=== PATIENT | male | born 1935 | race Caucasian/White ===

== ENCOUNTER 2016-11-24 03:09 | Emergency (ER) | payer OTHER, MEDICARE ==
[~2016-11-24] VITALS: Ht 172.7 cm; Wt 77.3 kg
[~2016-11-24 03:09] MED LIST: AMLODIPINE BESY10 MG PO; Aldactone PO; Bactrim,Septra DS 80 PO; CRESTOR20 MG PO; FLOMAX0.4 MG PO; Flomax PO; INDOCIN50 MG PO; LOW DOSE ASPIRI81 M2 PO; Lopressor PO; METOPROLOL SUCC25 MG PO; Norvasc PO; SPIRONOLACTONE25 MG PO; [UNRECOGNIZED DRUG - OTHER] PO
[2016-11-24 04:26] LABS: ADD MIUA? YES; BILIRUBIN NEGATIVE; BLOOD MODERATE; COLOR YELLOW ((YELLOW)); GLUCOSE (STRIP) NEGATIVE; KETONES NEGATIVE; LEUKOCYTES NEGATIVE; NITRITE NEGATIVE; PROTEIN (STRIP) 30; SPECIFIC GRAVITY 1.013 (1.000-1.030); UROBILINOGEN 0.2 MG/DL (0.2-1.0)
[2016-11-24 04:29] LABS: BACTERIA NONE SEEN /HPF; EPITHELIAL CELLS NONE SEEN /HPF; MUCUS TRACE /LPF; RED BLOOD CELLS TNTC /HPF (0-5); UCUL ADDED? YES; WHITE BLOOD CELLS 0-5 /HPF (0-5)
[2016-11-24 04:51] LABS: CHLORIDE 106 mEq/L (99-109); POTASSIUM 4.3 mEq/L (3.7-5.4); SODIUM 138 mEq/L (136-147)
[2016-11-24 04:53] LABS: GLUCOSE 120 mg/dL (70-99)
[2016-11-24 04:55] LABS: ANION GAP 9 MEQ/L (2-14)
[2016-11-24 04:57] LABS: GFR ESTIMATE (CALCULATED) > 59 mL/min/
[2016-11-24 04:58] LABS: UREA NITROGEN (BUN) 20 mg/dL (9-23)
[2016-11-24 05:07] LABS: HEMATOCRIT 37.7 % (38.0-50.0); MCH 30.8 PG (29.0-34.0); MCV 90.8 FL (86-99); MEAN PLAT.VOLUME 10.4 uM^3 (9.0-12.4); PLATELET COUNT 168 K/uL (156-360); RBC DIS.WIDTH-CV 12.8 % (11.8-14.6); RBC DIS.WIDTH-SD 42.1 % (39-53); RED BLOOD COUNT 4.15 M/uL (4.00-5.50); WHITE BLOOD COUNT 7.2 K/uL (4.1-10.2)
[2016-11-24 06:00] VITALS: BP 130/73
== END 2016-11-24 06:00 | disposition home or self-care (01) ==
LOC: EME 03:09
PROVIDERS: Emergency Medicine
PROC: 0T9B70Z Drainage of Bladder with Drainage Device, Via Natural or Artificial Opening (ICD-10-PCS; principal; 2016-11-24)
DX: R33.9 Retention of urine, unspecified (principal); Z98.890 Other specified postprocedural states; I10 Essential (primary) hypertension; Z85.46 Personal history of malignant neoplasm of prostate; Z79.82 Long term (current) use of aspirin
CPT/HCPCS: 80048; 81003; 85027; 87086; 99281; 99284

== ENCOUNTER → 2016-11-30 | Outpatient (CLI) | payer MEDICARE | END | disposition home or self-care (01) | LOC: CDC 14:24 | DX: I49.1 Atrial premature depolarization (principal); I45.10 Unspecified right bundle-branch block; I44.4 Left anterior fascicular block | CPT/HCPCS: 93000 ==

== ENCOUNTER 2016-12-18 23:19 | Emergency (ER) | payer OTHER, MEDICARE ==
[~2016-12-18] VITALS: Ht 172.7 cm; Wt 75.6 kg
[2016-12-19 00:16] LABS: HEMATOCRIT 37.4 % (38.0-50.0); MCH 30.4 PG (29.0-34.0); MCHC 33.4 G/DL (30.0-36.0); MEAN PLAT.VOLUME 9.9 uM^3 (9.0-12.4); PLATELET COUNT 202 K/uL (156-360); RBC DIS.WIDTH-CV 12.7 % (11.8-14.6); RBC DIS.WIDTH-SD 42.1 % (39-53); RED BLOOD COUNT 4.11 M/uL (4.00-5.50); WHITE BLOOD COUNT 5.2 K/uL (4.1-10.2)
[2016-12-19 00:26] LABS: ADD MIUA? YES; BILIRUBIN NEGATIVE; BLOOD SMALL; GLUCOSE (STRIP) NEGATIVE; KETONES NEGATIVE; LEUKOCYTES MODERATE; NITRITE NEGATIVE; PROTEIN (STRIP) NEGATIVE; SPECIFIC GRAVITY 1.009 (1.000-1.030); UROBILINOGEN 0.2 MG/DL (0.2-1.0)
[2016-12-19 00:28] LABS: COLOR GREEN ((YELLOW))
[2016-12-19 00:30] LABS: CHLORIDE 108 mEq/L (99-109); POTASSIUM 4.2 mEq/L (3.7-5.4); SODIUM 140 mEq/L (136-147)
[2016-12-19 00:31] LABS: GLUCOSE 111 mg/dL (70-99)
[2016-12-19 00:33] LABS: ANION GAP 8 MEQ/L (2-14)
[2016-12-19 00:35] LABS: GFR ESTIMATE (CALCULATED) > 59 mL/min/
[2016-12-19 00:36] LABS: UREA NITROGEN (BUN) 17 mg/dL (9-23)
[2016-12-19 00:42] LABS: BACTERIA 1+ /HPF; EPITHELIAL CELLS NONE SEEN /HPF; MUCUS NONE SEEN /LPF; UCUL ADDED? YES; WHITE BLOOD CELLS 20-30 /HPF (0-5)
[2016-12-19] MEDS ORDERED: BACTRIM,SEPT1 TABLET PO (00:56)
[2016-12-19 02:03] VITALS: BP 166/83
== END 2016-12-19 02:04 | disposition home or self-care (01) ==
LOC: EME 23:19
PROVIDERS: Emergency Medicine
PROC: 0T9B70Z Drainage of Bladder with Drainage Device, Via Natural or Artificial Opening (ICD-10-PCS; principal; 2016-12-18)
DX: R33.9 Retention of urine, unspecified (principal); N39.0 Urinary tract infection, site not specified; C61 Malignant neoplasm of prostate; C79.11 Secondary malignant neoplasm of bladder; I10 Essential (primary) hypertension; Z79.82 Long term (current) use of aspirin
CPT/HCPCS: 80048; 81003; 85027; 87086; 99281; 99284

== ENCOUNTER → 2017-02-01 | Outpatient (CLI) | payer OTHER, MEDICARE ==
[~2017-02-01] MED LIST changes: +BACTRIM,SEPT1 TABLET PO
== END | disposition home or self-care (01) ==
LOC: NUC 09:29
DX: M47.892 Other spondylosis, cervical region (principal); M47.897 Other spondylosis, lumbosacral region; M19.012 Primary osteoarthritis, left shoulder; M19.011 Primary osteoarthritis, right shoulder; M19.021 Primary osteoarthritis, right elbow; M19.032 Primary osteoarthritis, left wrist; M19.031 Primary osteoarthritis, right wrist; M19.072 Primary osteoarthritis, left ankle and foot
CPT/HCPCS: 78306; A9503

== ENCOUNTER 2017-07-20 02:43 | Observation (INO) | payer OTHER, MEDICARE ==
[~2017-07-20] VITALS: Ht 172.7 cm; Wt 74.5 kg
[2017-07-20 03:39] LABS: BASOPHIL (%) 0.1 % (0-1); EOSINOPHIL (%) 2.5 % (0-5); EOSINOPHIL COUNT 0.3 K/uL (0-0.3); HEMATOCRIT 27.5 % (38.0-50.0); IMMATURE GRANULOCYTE (%) 2.5 % (0.0-0.7); LYMPHOCYTE (%) 4.9 % (15-42); LYMPHOCYTE COUNT 0.6 K/uL (1.0-2.8); MCH 31.3 PG (29.0-34.0); MCHC 33.5 G/DL (30.0-36.0); MCV 93.5 FL (86-99); MONOCYTE (%) 12.4 % (3-12); MONOCYTE COUNT 1.4 K/uL (0-0.8); NEUTROPHIL (%) 77.6 % (45-76); NEUTROPHIL COUNT 8.8 K/uL (1.8-6.4); PLATELET COUNT 91 K/uL (156-360); RBC DIS.WIDTH-CV 15.8 % (11.8-14.6); RBC DIS.WIDTH-SD 53.1 % (39-53); RED BLOOD COUNT 2.94 M/uL (4.00-5.50); WHITE BLOOD COUNT 11.4 K/uL (4.1-10.2)
[2017-07-20 04:00] LABS: CHLORIDE 108 mEq/L (99-109); POTASSIUM 3.8 mEq/L (3.7-5.4); SODIUM 142 mEq/L (136-147)
[2017-07-20 04:01] LABS: MAGNESIUM 1.8 mg/dL (1.3-2.7)
[2017-07-20 04:02] LABS: GLUCOSE 109 mg/dL (70-99)
[2017-07-20 04:06] LABS: GFR ESTIMATE (CALCULATED) > 59 mL/min/ (58.99-99999)
[2017-07-20 04:07] LABS: UREA NITROGEN (BUN) 13 mg/dL (9-23)
[2017-07-20 04:09] LABS: HEMOGLOBIN 9.2 G/DL (12.5-16.6); TROP-I INTERPRETATION NEGATIVE; TROPONIN-I 0.02 ng/mL (0.0-0.30)
[2017-07-20 06:55] LABS: TROP-I INTERPRETATION NEGATIVE; TROPONIN-I 0.03 ng/mL (0.0-0.30)
[2017-07-20 08:43] VITALS: BP 132/60
[2017-07-20 11:10] VITALS: BP 107/59
[2017-07-20 13:01] LABS: TROP-I INTERPRETATION NEGATIVE; TROPONIN-I 0.02 ng/mL (0.0-0.30)
[2017-07-20 15:51] VITALS: BP 110/60
[2017-07-20 19:00] VITALS: BP 100/58
[2017-07-20 20:11] LABS: APPEARANCE SL.HAZY ((CLEAR)); BILIRUBIN NEGATIVE; BLOOD LARGE; COLOR YELLOW ((YELLOW)); GLUCOSE (STRIP) NEGATIVE; KETONES NEGATIVE; LEUKOCYTES NEGATIVE; NITRITE NEGATIVE; PROTEIN (STRIP) 100; SPECIFIC GRAVITY 1.023 (1.000-1.030); UROBILINOGEN 0.2 MG/DL (0.2-1.0)
[2017-07-20 20:22] LABS: BACTERIA NONE SEEN /HPF; EPITHELIAL CELLS NONE SEEN /HPF; MUCUS TRACE /LPF; RED BLOOD CELLS TNTC /HPF (0-5); UCUL ADDED? YES
[2017-07-20 23:58] VITALS: BP 129/79
[2017-07-21 04:09] VITALS: BP 110/70
[2017-07-21 06:30] LABS: BASOPHIL (%) 0.3 % (0-1); EOSINOPHIL (%) 1.9 % (0-5); EOSINOPHIL COUNT 0.2 K/uL (0-0.3); HEMATOCRIT 26.2 % (38.0-50.0); HEMOGLOBIN 8.4 G/DL (12.5-16.6); IMMATURE GRANULOCYTE (%) 1.9 % (0.0-0.7); LYMPHOCYTE (%) 5.4 % (15-42); LYMPHOCYTE COUNT 0.6 K/uL (1.0-2.8); MCH 29.9 PG (29.0-34.0); MCHC 32.1 G/DL (30.0-36.0); MCV 93.2 FL (86-99); MONOCYTE (%) 11.4 % (3-12); MONOCYTE COUNT 1.3 K/uL (0-0.8); NEUTROPHIL (%) 79.1 % (45-76); NEUTROPHIL COUNT 9.3 K/uL (1.8-6.4); RBC DIS.WIDTH-CV 15.9 % (11.8-14.6); RBC DIS.WIDTH-SD 53.8 % (39-53); RED BLOOD COUNT 2.81 M/uL (4.00-5.50); WHITE BLOOD COUNT 11.8 K/uL (4.1-10.2)
[2017-07-21 06:32] LABS: PLATELET COUNT 148 K/uL (156-360)
[2017-07-21 06:59] LABS: CHLORIDE 105 MEQ/L (99-109); GFR ESTIMATE (CALCULATED) > 59 mL/min/ (58.99-99999); GLUCOSE 101 mg/dL (70-99); MAGNESIUM 1.8 mg/dl (1.3-2.7); POTASSIUM 3.6 MEQ/L (3.7-5.4); SODIUM 140 MEQ/L (136-147); UREA NITROGEN (BUN) 13 mg/dL (9-23)
[2017-07-21 07:40] VITALS: BP 123/63
[2017-07-21 11:25] VITALS: BP 138/67
[2017-07-21 15:22] VITALS: BP 127/62
[2017-07-21 20:03] VITALS: BP 113/61
[2017-07-21 22:50] VITALS: BP 105/58
[2017-07-22] MEDS ORDERED: BACTRIM,SEPT1 TABLET PO (08:00)
[2017-07-22] MEDS ORDERED: POLYETHYLENE GL17 GM PO (08:01)
[2017-07-22] MEDS ORDERED: METAMUCIL PACK3.4 GM PO (08:01)
[2017-07-22] MEDS ORDERED: ENDOCET 5-3251 EACH PO (08:01)
[2017-07-22 08:06] VITALS: BP 100/63
[2017-07-22 11:13] VITALS: BP 101/58
== END 2017-07-22 13:40 | disposition home or self-care (01) ==
LOC: EME 02:43 → ENRESERV 05:36 → EDOF 05:36 → ENRESERV 06:32 → 5WEST 07:35
PROVIDERS: Internal Medicine; Internal Medicine Medical Oncology; Physician Assistant
DX: I82.611 Acute embolism and thrombosis of superficial veins of right upper extremity (principal); C67.9 Malignant neoplasm of bladder, unspecified; R07.9 Chest pain, unspecified; N30.40 Irradiation cystitis without hematuria; N30.20 Other chronic cystitis without hematuria; Z92.21 Personal history of antineoplastic chemotherapy; G62.9 Polyneuropathy, unspecified; I10 Essential (primary) hypertension; E78.5 Hyperlipidemia, unspecified; D64.9 Anemia, unspecified; D69.6 Thrombocytopenia, unspecified; I45.10 Unspecified right bundle-branch block; J84.10 Pulmonary fibrosis, unspecified; N31.2 Flaccid neuropathic bladder, not elsewhere classified; Z88.0 Allergy status to penicillin; Z88.1 Allergy status to other antibiotic agents; Z88.8 Allergy status to other drugs, medicaments and biological substances
CPT/HCPCS: 71045; 71275; 73201; 80048; 81003; 83605; 83735; 84484; 85025; 87040; 87086; 93005; 93971; 99281; 99285; G0378; J1650; J3010; J7030; J7040

== ENCOUNTER 2017-09-21 01:48 | Inpatient (IN) | payer OTHER, MEDICARE ==
[2017-09-21] VITALS (9 sets, daily range): BP systolic 84–111; BP diastolic 46–61
[~2017-09-21] VITALS: Ht 170.2 cm; Wt 74.5 kg
[~2017-09-21 01:48] MED LIST changes: +ENDOCET 5-3251 EACH PO; +METAMUCIL PACK3.4 GM PO; +POLYETHYLENE GL17 GM PO
[2017-09-21 02:53] LABS: BASOPHIL (%) 0.3 % (0-1); EOSINOPHIL (%) 0.3 % (0-5); HEMATOCRIT 29.4 % (38.0-50.0); HEMOGLOBIN 9.7 G/DL (12.5-16.6); IMMATURE GRANULOCYTE (%) 0.3 % (0.0-0.7); LYMPHOCYTE (%) 2.9 % (15-42); LYMPHOCYTE COUNT 0.3 K/uL (1.0-2.8); MCV 87.8 FL (86-99); MONOCYTE (%) 6.8 % (3-12); MONOCYTE COUNT 0.7 K/uL (0-0.8); NEUTROPHIL (%) 89.4 % (45-76); NEUTROPHIL COUNT 8.7 K/uL (1.8-6.4); PLATELET COUNT 255 K/uL (156-360); RBC DIS.WIDTH-CV 14.6 % (11.8-14.6); RBC DIS.WIDTH-SD 46.5 % (39-53); RED BLOOD COUNT 3.35 M/uL (4.00-5.50); WHITE BLOOD COUNT 9.8 K/uL (4.1-10.2)
[2017-09-21 03:04] LABS: ALBUMIN 3.5 g/dL (3.2-4.8); CHLORIDE 101 mEq/L (99-109); SODIUM 138 mEq/L (136-147)
[2017-09-21 03:06] LABS: GLUCOSE 151 mg/dL (70-99); TOTAL PROTEIN 7.6 g/dL (6.4-8.3)
[2017-09-21 03:08] LABS: TOTAL BILIRUBIN 0.5 mg/dL (0.0-1.0)
[2017-09-21 03:10] LABS: ALKALINE PHOSPHATASE 75 IU/L (3-129); CREATININE 1.2 mg/dL (0.6-1.3); GFR ESTIMATE (CALCULATED) > 59 mL/min/ (58.99-99999)
[2017-09-21 03:11] LABS: UREA NITROGEN (BUN) 16 mg/dL (9-23)
[2017-09-21 03:12] LABS: AST (GOT) 17 IU/L (2-34)
[2017-09-21 03:13] LABS: ALT (GPT) 15 IU/L (3-49); LIPASE 2 U/L (1.0-51.0)
[2017-09-21 03:41] LABS: APPEARANCE CLOUDY ((CLEAR)); BILIRUBIN NEGATIVE; BLOOD MODERATE; COLOR YELLOW ((YELLOW)); GLUCOSE (STRIP) NEGATIVE; KETONES NEGATIVE; LEUKOCYTES LARGE; NITRITE POSITIVE; PROTEIN (STRIP) 100; SPECIFIC GRAVITY 1.008 (1.000-1.030); UROBILINOGEN 0.2 MG/DL (0.2-1.0)
[2017-09-21 03:45] LABS: BACTERIA NONE SEEN /HPF; EPITHELIAL CELLS RARE /HPF; MUCUS TRACE /LPF; UCUL ADDED? YES; WHITE BLOOD CELLS TNTC /HPF (0-5)
[2017-09-21 06:55] LABS: CARBON DIOXIDE (BICARBONATE) 25.4 MEQ/L (20-31)
[2017-09-21] MEDS ORDERED: COLACE100 MG PO (13:00)
[2017-09-21] MEDS ORDERED: NORCO 5/3251 TABLET PO (13:00)
[2017-09-21] MEDS ORDERED: LASIX20 MG PO (13:01)
[2017-09-21 22:32] LABS: C DIFF TOXIN NEGATIVE (NEGATIVE)
[2017-09-22 05:33] VITALS: BP 111/55
[2017-09-22 06:10] LABS: CHLORIDE 106 MEQ/L (99-109); CREATININE 1.2 MG/DL (0.6-1.3); GFR ESTIMATE (CALCULATED) > 59 mL/min/ (58.99-99999); POTASSIUM 4.3 MEQ/L (3.7-5.4); SODIUM 140 MEQ/L (136-147); UREA NITROGEN (BUN) 19 mg/dL (9-23)
[2017-09-22 06:15] LABS: HEMATOCRIT 27.5 % (38.0-50.0); HEMOGLOBIN 8.6 G/DL (12.5-16.6); MCH 28.8 PG (29.0-34.0); MCHC 31.3 G/DL (30.0-36.0); RBC DIS.WIDTH-CV 14.7 % (11.8-14.6); RBC DIS.WIDTH-SD 49.5 % (39-53); RED BLOOD COUNT 2.99 M/uL (4.00-5.50); WHITE BLOOD COUNT 9.6 K/uL (4.1-10.2)
[2017-09-22 06:18] LABS: GLUCOSE 105 mg/dL (70-99)
[2017-09-22 07:04] LABS: PLAT.SUFFICIENCY ADEQUATE; PLATELET COUNT 174 K/uL (156-360)
[2017-09-22 07:36] VITALS: BP 107/58
[2017-09-22 12:26] VITALS: BP 108/59
[2017-09-22 15:27] VITALS: BP 125/61
[2017-09-22 20:13] VITALS: BP 121/58
[2017-09-23 01:11] VITALS: BP 119/59
[2017-09-23 04:42] VITALS: BP 120/69
[2017-09-23 07:57] VITALS: BP 114/64
[2017-09-23 12:55] VITALS: BP 114/71
[2017-09-23 15:59] VITALS: BP 112/56
[2017-09-23 20:03] VITALS: BP 111/67
[2017-09-24 00:33] VITALS: BP 135/64
[2017-09-24 05:12] LABS: BASOPHIL (%) 0.3 % (0-1); EOSINOPHIL (%) 3.3 % (0-5); EOSINOPHIL COUNT 0.1 K/uL (0-0.3); HEMATOCRIT 24.5 % (38.0-50.0); IMMATURE GRANULOCYTE (%) 0.6 % (0.0-0.7); LYMPHOCYTE COUNT 0.3 K/uL (1.0-2.8); MCH 28.9 PG (29.0-34.0); MCHC 32.7 G/DL (30.0-36.0); MCV 88.4 FL (86-99); MONOCYTE (%) 14.6 % (3-12); MONOCYTE COUNT 0.5 K/uL (0-0.8); NEUTROPHIL (%) 71.2 % (45-76); NEUTROPHIL COUNT 2.3 K/uL (1.8-6.4); PLATELET COUNT 208 K/uL (156-360); RBC DIS.WIDTH-CV 14.6 % (11.8-14.6); RBC DIS.WIDTH-SD 46.8 % (39-53); RED BLOOD COUNT 2.77 M/uL (4.00-5.50); WHITE BLOOD COUNT 3.3 K/uL (4.1-10.2)
[2017-09-24 05:20] VITALS: BP 118/66
[2017-09-24 05:41] LABS: CHLORIDE 105 MEQ/L (99-109); GFR ESTIMATE (CALCULATED) > 59 mL/min/ (58.99-99999); GLUCOSE 105 mg/dL (70-99); POTASSIUM 3.6 MEQ/L (3.7-5.4); SODIUM 141 MEQ/L (136-147); UREA NITROGEN (BUN) 12 mg/dL (9-23)
[2017-09-24 07:24] VITALS: BP 127/86
[2017-09-24 11:54] VITALS: BP 129/62
[2017-09-24] MEDS ORDERED: CEFEPIME HCL2 GM IV (12:24)
[2017-09-24] MEDS ORDERED: PEPCID20 MG PO (12:30)
[2017-09-24] MEDS ORDERED: MYLICON,MYLANTA80 MG PO (12:30)
[2017-09-24 14:59] VITALS: BP 114/94
== END 2017-09-24 17:54 | disposition home health service (06) | DRG 872 ==
LOC: EME → EDBD 01:48 → 4EAST 05:24 → EDOF 05:24 → ENRESERV 05:29 → 4EAST 05:48 → ENRESERV 05:56 → 4EAST 07:30
PROVIDERS: Emergency Medicine; Internal Medicine; Physician Assistant Medical; Student in an Organized Health Care Education/Training Program
DX: A41.59 Other Gram-negative sepsis (principal); N10 Acute pyelonephritis; I47.1 Supraventricular tachycardia; B96.89 Other specified bacterial agents as the cause of diseases classified elsewhere; B96.5 Pseudomonas (aeruginosa) (mallei) (pseudomallei) as the cause of diseases classified elsewhere; N18.3 Chronic kidney disease, stage 3 (moderate); E78.5 Hyperlipidemia, unspecified; G89.29 Other chronic pain; I12.9 Hypertensive chronic kidney disease with stage 1 through stage 4 chronic kidney disease, or unspecified chronic kidney disease; I71.4 Abdominal aortic aneurysm, without rupture; D64.9 Anemia, unspecified; J84.10 Pulmonary fibrosis, unspecified; D69.6 Thrombocytopenia, unspecified; E66.9 Obesity, unspecified; K59.00 Constipation, unspecified; M54.40 Lumbago with sciatica, unspecified side; G62.0 Drug-induced polyneuropathy; I45.10 Unspecified right bundle-branch block; T45.1X5A Adverse effect of antineoplastic and immunosuppressive drugs, initial encounter; I95.9 Hypotension, unspecified; Z68.25 Body mass index [BMI] 25.0-25.9, adult; Z85.46 Personal history of malignant neoplasm of prostate; Z85.51 Personal history of malignant neoplasm of bladder; Z86.72 Personal history of thrombophlebitis; Z88.1 Allergy status to other antibiotic agents; Z90.49 Acquired absence of other specified parts of digestive tract; Z90.6 Acquired absence of other parts of urinary tract; Z92.21 Personal history of antineoplastic chemotherapy; Z92.3 Personal history of irradiation; Z93.3 Colostomy status; Z93.6 Other artificial openings of urinary tract status; Z90.79 Acquired absence of other genital organ(s); Z88.0 Allergy status to penicillin
CPT/HCPCS: 71045; 71275; 72132; 74177; 80048; 80053; 81003; 82803; 82948; 83605; 83690; 84145 90; 84443; 85025; 85027; 87040; 87077; 87086; 87186; 87493; 87801; 93005; 94760; 94799; 99281; 99285; A6214; J0692; J1644; J1815; J1885; J2405; J2765; J3010; J3370; J7120; S0028

== ENCOUNTER 2017-11-08 09:30 | Day surgery (SDC) | payer OTHER, MEDICARE ==
[~2017-11-08] VITALS: Ht 170.2 cm; Wt 68.0 kg
[~2017-11-08 09:30] MED LIST changes: +CEFEPIME HCL2 GM IV; +COLACE100 MG PO; +GABAPENTIN100 MG PO; +LASIX20 MG PO; +MYLICON,MYLANTA80 MG PO; +NORCO 5/3251 TABLET PO; +PEPCID20 MG PO
== END 2017-11-08 13:15 | disposition home or self-care (01) ==
LOC: CATH 09:30
DX: I87.8 Other specified disorders of veins (principal); Z86.718 Personal history of other venous thrombosis and embolism; C67.9 Malignant neoplasm of bladder, unspecified; I10 Essential (primary) hypertension; E78.5 Hyperlipidemia, unspecified
CPT/HCPCS: C1788; C1894; J1644; J2250; J3010; S0020